=== PATIENT | female | born 1995 | race Caucasian/White ===

== ENCOUNTER → 2018-06-08 | Outpatient (CLI) | payer MEDICAID ==
[~2018-06-08] MED LIST: COLA100C5 PO; IBUP1TAB7 PO; MOM30SS PO; OXYC1TAB23 PO; PERC5TAB12 PO; PERCOCET PO; PRENTAB9 PO
[2018-06-08 13:24] LABS: BASO % 0.3 % (0.0-1.0); EOS % 0.4 % (0.0-3.0); HEMATOCRIT 35.3 % (36.0-47.0); HEMOGLOBIN 11.3 g/dl (12.0-15.5); LYMPH # 1.4 10^3/uL (1.5-6.5); LYMPH % 14.8 % (24.0-44.0); MEAN CORPUSCULAR HEMOGLOBIN 24.9 pg (27.0-33.0); MEAN CORPUSCULAR VOLUME 77.8 fl (80.0-96.0); MONO # 0.5 10^3/uL (0.0-0.8); MONO % 5.6 % (0.0-5.0); NEUTROPHILS # 7.3 10^3/uL (1.8-7.7); NEUTROPHILS % 78.2 % (36.0-66.0); PLATELET COUNT, AUTOMATED 456 10^3/uL (150-450); RED BLOOD COUNT 4.54 10^6/uL (4.00-5.40); WHITE BLOOD COUNT 9.4 10^3/uL (4.0-10.0)
[2018-06-08 14:17] LABS: HEPATITIS C VIRUS ABY INDEX 0.1 INDEX (<0.8); HIV 1&2 SCREEN CENTAUR NEGATIVE (NEGATIVE); RUBELLA IgG QUALITATIVE IMMUNE (IMMUNE)
[2018-06-08 14:25] LABS: HEMOGLOBIN A1c 6.5 %
[2018-06-08 15:10] LABS: CHLAMYDIA DNA AMPLIFICATION NEGATIVE (NEGATIVE); GC DNA AMPLIFICATION NEGATIVE (NEGATIVE)
== END ==
LOC: M SMT 09:50
PROVIDERS: ATTEND Advanced Practice Midwife
DX: Z36.89 Encounter for other specified antenatal screening (principal)

== ENCOUNTER 2018-06-10 05:22 | Inpatient (IN) | payer MEDICAID, SELFPAY ==
[2018-06-10] VITALS (30 sets, daily range): BP systolic 100–141; BP diastolic 52–87
[~2018-06-10] VITALS: Ht 172.7 cm; Wt 113.0 kg
[2018-06-10] MEDS ORDERED: LACTATED RINGER'S 1000 ML IV STA ×2 (08:19→11:42)
[2018-06-10] MEDS ORDERED: LR 1,000 ML IV SCH ×2 (08:19→13:00)
[2018-06-10 09:03] LABS: HEMATOCRIT 34.2 % (36.0-47.0); MEAN CORPUSCULAR HEMOGLOBIN 24.8 pg (27.0-33.0); MEAN CORPUSCULAR HGB CONC 32.2 g/dl (32.0-36.5); MEAN CORPUSCULAR VOLUME 77.2 fl (80.0-96.0); PLATELET COUNT, AUTOMATED 462 10^3/uL (150-450); RED BLOOD COUNT 4.43 10^6/uL (4.00-5.40); WHITE BLOOD COUNT 12.5 10^3/uL (4.0-10.0)
[2018-06-10 09:29] LABS: ALT/SGPT 17 U/L (12-78); BILIRUBIN,TOTAL 0.2 MG/DL (0.2-1.0); CREATININE FOR GFR 0.43 MG/DL (0.55-1.30); GLOMERULAR FILTRATION RATE > 60.0 (>60); LDH LACTATE DEHYDROGENASE 391 U/L (84-246); URIC ACID 3.3 MG/DL (2.6-6.0)
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
[2018-06-10 10:13] LABS: AMPHETAMINES URINE REFLEX NEGATIVE (NEGATIVE); BARBITURATES URINE REFLEX NEGATIVE (NEGATIVE); BENZODIAZEPINES URINE REFLEX NEGATIVE (NEGATIVE); CANNABINOIDS URINE REFLEX NEGATIVE (NEGATIVE); COCAINE METABOLITE URINE REFLE NEGATIVE (NEGATIVE); CREATININE,RANDOM URINE 18.3 MG/DL; METHADONE URINE REFLEX NEGATIVE (NEGATIVE); OPIATES URINE REFLEX NEGATIVE (NEGATIVE); PHENCYCLIDINE URINE REFLEX NEGATIVE (NEGATIVE); TOTAL PROTEIN,RANDOM URINE 9.8 MG/DL (0.0-12.0)
[2018-06-10] MEDS ORDERED: FENTANYL 2MCG/ML ROPIVACAINE 0.2% IN 0.9% NACL 100ML IVBAG As Ordered ONE (10:21)
[2018-06-10] MEDS ORDERED: LACTATED RINGER'S 1000 ML IV PRN (11:00)
[2018-06-10] MEDS ORDERED: FENTANYL/ROPIVACAINE/NACL BAG 100 ML EPIDURAL SCH (11:00)
[2018-06-10] MEDS ORDERED: ONDANSETRON 4MG/2ML VIAL (J2405) IV PRN ×4 (11:00→13:00)
[2018-06-10] MEDS ORDERED: diphenhydrAMINE INJ 50MG/ML VIAL (J1200) IV PRN ×2 (11:00→12:10)
[2018-06-10] MEDS ORDERED: NALOXONE INJ 0.4 MG/1 ML VIAL (J2310) IV PRN ×3 (11:00→12:10)
[2018-06-10] MEDS ORDERED: EPIDURAL/PCA KEYS XX PRN (11:00)
[2018-06-10] MEDS ORDERED: ePHEDrine SULFATE 25 MG/5 ML(5MG/ML) SYRINGE IV PRN (11:00)
[2018-06-10] MEDS ORDERED: EPIDURAL COMMENT XX SCH (11:00)
[2018-06-10] MEDS ORDERED: REFRIGERATOR IV KEYS XX PRN (11:00)
[2018-06-10] MEDS ORDERED: AZITHROMYCIN INJ 500MG VIAL (J0456) As Ordered ONE (11:44)
[2018-06-10] MEDS ORDERED: ceFAZolin 2 GM/D5W 50 ML IV BAG (J0690 PER 500MG) As Ordered ONE (11:45)
[2018-06-10] MEDS ORDERED: AZITHROMYCIN INJ 500 MG, VIAL MATE ADAPTER 1 EACH in D5W 250 ML IV ONE (11:45)
[2018-06-10] MEDS ORDERED: BICITRA 30ML SOLN UDC PO ONE (11:45)
--- NOTE | 2018-06-10 11:47 | IPNPDOC ---
Text Note Date of Service The patient was seen on 06/10/18. NOTE FH decel to 60's/70's over 3-4 minutes with slow recovery O2 via mask, IV fluid bolus, position change to all 4's. SVE 5-6cm Dr Hays alerted. called. VS,Fishbone, I+O VS, Fishbone, I+O Laboratory Tests 06/10/18 08:47 Red Blood Count 4.43, Mean Corpuscular Volume 77.2 L, Mean Corpuscular Hemoglobin 24.8 L, Mean Corpuscular Hemoglobin Concent 32.2, Red Cell Distribution Width 14.4, Aspartate Amino Transf (AST/SGOT) 37, Alanine Aminotransferase (ALT/SGPT) 17, Lactate Dehydrogenase 391 H, Total Bilirubin 0.2, Uric Acid 3.3 Vital Signs Date Time Temp Pulse Resp B/P (MAP) Pulse Ox O2 Delivery O2 Flow Rate FiO2 06/10/18 06:30 98.6 06/10/18 05:40 107 140/80 (100) Radha Veras CNM Jun 10, 2018 11:47
[2018-06-10] MEDS ORDERED: OXYTOCIN INJ 10 UNITS/ML VIAL (J2590) As Ordered ONE (12:06)
[2018-06-10] MEDS ORDERED: MORPHINE PRES-FREE INJ 10 MG/10 ML VIAL (J2274) As Ordered ONE (12:06)
[2018-06-10] MEDS ORDERED: LIDOCAINE 2% W/EPIN INJ 20ML **PRES FREE As Ordered ONE (12:06)
[2018-06-10] MEDS ORDERED: MIDAZOLAM INJ 2 MG/2 ML VIAL (J2250) As Ordered ONE (12:07)
[2018-06-10] MEDS ORDERED: METOCLOPRAMIDE INJ 10MG/2ML VIAL (J2765) IV PRN ×2 (12:10→13:00)
[2018-06-10 12:24] LABS: CORD GAS ABE A -4.6; CORD GAS HCO3 A 21.1 MEQ/L; CORD GAS PCO2 A 41.3 mmHg; CORD GAS PH A 7.326 UNITS; CORD GAS PO2 A 42.7 mmHg; CORD GAS SBC A 20.4 MEQ/L; CORD GAS TCO2 A 22.4 MEQ/L
[2018-06-10 12:27] LABS: CORD GAS ABE V -3.4; CORD GAS HCO3 V 22.5 MEQ/L; CORD GAS O2 SAT V 79.2 %; CORD GAS PCO2 V 43.2 mmHg; CORD GAS PH V 7.334 UNITS; CORD GAS PO2 V 38.6 mmHg; CORD GAS SBC V 21.2 MEQ/L; CORD GAS TCO2 V 23.8 MEQ/L
[2018-06-10] MEDS ORDERED: OXYTOCIN DRIP 30 UNITS in APPROPRIATE DILUENT 1 EA IV SCH (12:36)
[2018-06-10] MEDS ORDERED: MOM 30ML SUSPENSION UDC PO PRN (12:45)
[2018-06-10] MEDS ORDERED: RHOGAM 300 MCG (1500 IU) INJ (J2790) IM SCH (12:45)
[2018-06-10] MEDS ORDERED: MEASLES,MUMPS,RUBELLA VACCINE INJ (MMR-II) (90707) SC SCH (12:45)
[2018-06-10] MEDS ORDERED: PERCOCET 5MG/325MG TAB PO PRN ×2 (12:45→13:00)
[2018-06-10] MEDS ORDERED: MEPERIDINE INJ 25 MG/ML VIAL (J2175) IV PRN (13:00)
[2018-06-10] MEDS ORDERED: fentaNYL 100 MCG/2 ML INJECTION (J3010) IV PRN (13:00)
[2018-06-10] MEDS ORDERED: NALBUPHINE HCL 10 MG/ML AMP (J2300) IV PRN (13:00)
[2018-06-10] MEDS ORDERED: KETOROLAC 30 MG/ML VIAL (J1885) IV PRN (13:00)
[2018-06-10] MEDS ORDERED: KETOROLAC 30 MG/ML VIAL (J1885) As Ordered ONE (13:01)
[2018-06-10] MEDS ORDERED: OXYTOCIN 30 UNITS IN 0.9% NaCl 500ML IV BAG (J2590) As Ordered ONE (13:03)
[2018-06-10] MEDS: KETOROLAC 30 MG/ML VIAL (J1885) IV SCH ×2 (13:04→18:30)
--- NOTE | 2018-06-10 13:11 | RO ---
DATE OF PROCEDURE: 06/10/2018 PREPROCEDURE DIAGNOSIS: Nonreassuring heart rate tracing. POSTPROCEDURE DIAGNOSIS: Nonreassuring heart rate tracing. PROCEDURE: Primary lower transverse section. SURGEON: Dr. Chrissy Hays DONOR CENTER TECHNICIAN: Mayra Maki MD ANESTHESIA: Epidural. ESTIMATED BLOOD LOSS: 500 mL. INTRAVENOUS FLUIDS: 1 liter of lactated ringer solution. URINE OUTPUT: 150 mL. OPERATIVE FINDINGS: Live born male , scores 8 and 9, weight 8 pounds 6 ounces, 3790 grams. There was an approximately 2 cm laceration upon entry of the left forehead. PREOPERATIVE ANTIBIOTICS: 2 grams of Ancef. SPECIMENS: Cord blood and gases. Cord gases were 7.32 and 7.33. Base excesses -4.6 and -3.4. DESCRIPTION OF PROCEDURE: After informed consent was obtained and written content was reviewed, the patient was brought to the operating room urgently and was placed in supine position left lateral tilt. A Couch catheter was previously placed. She was prepped and draped in normal sterile fashion. A time out in the operating room was then performed identifying the patient, the procedure to be performed, as well as drug allergies. Anesthesia was tested and deemed to be adequate. A Pfannenstiel skin incision was then made and carried down to the underlying rectus fascia. The fascia was scored and this incision was extended bilaterally. The fascia was then dissected off the underlying rectus muscles both superiorly and inferiorly. The rectus muscles were in the midline. The peritoneum was then entered. The vesicouterine was identified and was then excised to create a bladder flap. The bladder blade was then placed to retract back the bladder. A curvilinear incision was made in the lower uterine segment. The head was then delivered along with shoulders and corpus. There was a double nuchal cord that was reduced. The cord was clamped times two and was cut. was taken over to the warmer where Dr. Byrne, principle industrial hygienist, weighed it. Cord gases blood was obtained. The placenta was drained and delivered grossly intact. The uterus was then exteriorized and cleared of all clots and debris. The uterine incision was closed in two layers using #0 Vicryl first in a running locking fashion, followed by a second layer for imbrication in a running nonlocking fashion. The abdomen was then suctioned. The uterus was returned to the patient's abdomen. It was inspected and noted to be hemostatic. The anterior peritoneum was then reapproximated with #3-0 Vicryl. The fascia was then closed using #0 Vicryl in a running nonlocking fashion. The subcutaneous tissue was then irrigated and suctioned. The subcutaneous tissue was then reapproximated with #3-0 Vicryl. Several subdermal stitches were placed with #3-0 Vicryl. The skin was closed with #4-0 Monocryl in subcuticular fashion. The incision was then cleaned and dried and was dressed. The patient was then taken to recovery in stable condition. Counts were correct.
[2018-06-10] MEDS: PERCOCET 5MG/325MG TAB PO PRN ×2 (15:27→20:41)
[2018-06-10] MEDS: NALBUPHINE HCL 10 MG/ML AMP (J2300) IV PRN ×2 (16:32→21:24)
[2018-06-10] MEDS: LR 1,000 ML IV SCH (18:30)
[2018-06-10] MEDS: DOCUSATE SODIUM 100 MG CAP PO SCH (20:42)
[2018-06-11] MEDS: KETOROLAC 30 MG/ML VIAL (J1885) IV SCH ×2 (00:45→06:08)
[2018-06-11] MEDS: PERCOCET 5MG/325MG TAB PO PRN ×5 (01:21→20:15)
[2018-06-11] MEDS: LR 1,000 ML IV SCH (01:45)
[2018-06-11 02:00] VITALS: BP 118/59
[2018-06-11 06:00] VITALS: BP 101/59
[2018-06-11 06:50] LABS: HEMATOCRIT 29.9 % (36.0-47.0); HEMOGLOBIN 9.3 g/dl (12.0-15.5); MEAN CORPUSCULAR HEMOGLOBIN 24.7 pg (27.0-33.0); MEAN CORPUSCULAR HGB CONC 31.1 g/dl (32.0-36.5); MEAN CORPUSCULAR VOLUME 79.3 fl (80.0-96.0); RED BLOOD COUNT 3.77 10^6/uL (4.00-5.40)
[2018-06-11 07:03] LABS: PLATELET COUNT, AUTOMATED 357 10^3/uL (150-450)
--- NOTE | 2018-06-11 07:14 | IPNPDOC ---
Text Note Date of Service The patient was seen on 06/11/18. NOTE PO #1 Feels well. Adequate pain managment. Couch d/c this am. Due to void VSS, afebrile, normotensive Fundus firm, NT Dressing dry, intact with old drainage Lochia rubra scant without odor PO #1 Routine precautions. Enc OOB activity. Consider D/C in am VS,Fishbone, I+O VS, Fishbone, I+O Laboratory Tests 06/10/18 08:47 Red Blood Count 4.43, Mean Corpuscular Volume 77.2 L, Mean Corpuscular Hemoglobin 24.8 L, Mean Corpuscular Hemoglobin Concent 32.2, Red Cell Distribution Width 14.4, Aspartate Amino Transf (AST/SGOT) 37, Alanine Aminotransferase (ALT/SGPT) 17, Lactate Dehydrogenase 391 H, Total Bilirubin 0.2, Uric Acid 3.3 06/11/18 06:13 Red Blood Count 3.77 L, Mean Corpuscular Volume 79.3 L, Mean Corpuscular Hemoglobin 24.7 L, Mean Corpuscular Hemoglobin Concent 31.1 L, Red Cell Distribution Width 14.4 Vital Signs Date Time Temp Pulse Resp B/P (MAP) Pulse Ox O2 Delivery O2 Flow Rate FiO2 06/11/18 06:09 16 Room Air 06/11/18 06:00 97.7 82 101/59 (73) 98 I&O- Last 24 Hours up to 6 AM 06/11/18 06:00 Intake Total 3622 ml Output Total 3625 ml Balance -3 ml Radha Veras CNM Jun 11, 2018 07:14
[2018-06-11] MEDS: DOCUSATE SODIUM 100 MG CAP PO SCH ×2 (07:54→20:15)
[2018-06-11] MEDS: PRENATAL VITAMINS CHEWABLE TABLET PO SCH (07:54)
[2018-06-11] MEDS ORDERED: INFLUENZA QUADRIVALENT PF VACCINE 0.5ML SYRINGE (90686) IM ONE (09:00)
[2018-06-11 10:00] VITALS: BP 110/66
[2018-06-11 13:51] VITALS: BP 124/75
[2018-06-11] MEDS: IBUPROFEN 800 MG TAB PO SCH ×2 (14:43→22:30)
[2018-06-11 18:00] VITALS: BP 126/83
[2018-06-11 22:00] VITALS: BP 125/61
[2018-06-12] MEDS: PERCOCET 5MG/325MG TAB PO PRN ×3 (01:11→16:59)
[2018-06-12 02:00] VITALS: BP 109/55
[2018-06-12 06:00] VITALS: BP 116/67
[2018-06-12] MEDS: DOCUSATE SODIUM 100 MG CAP PO SCH ×2 (07:40→20:48)
[2018-06-12] MEDS: IBUPROFEN 800 MG TAB PO SCH ×3 (07:41→22:10)
[2018-06-12] MEDS: PRENATAL VITAMINS CHEWABLE TABLET PO SCH (07:41)
--- NOTE | 2018-06-12 07:49 | NUR ---
POD#2 S: Doing well w/o complaints. Decreasing lochia, pain controlled, + voids and ambulation. O: vss, AF Gen: well appearing abd: soft, nttp with ff@u-1 incision: Dressed A/P: POD#2 s/p 1LTCS-currently stable -continue routine /postoperative care -d/c plans for tomorrow Chrissy Hays MD
[2018-06-12 10:00] VITALS: BP 117/70
[2018-06-12 14:00] VITALS: BP 113/66
[2018-06-12 18:00] VITALS: BP 120/71
[2018-06-13] MEDS: PERCOCET 5MG/325MG TAB PO PRN ×2 (01:24→09:22)
[2018-06-13 05:43] VITALS: BP 124/76
[2018-06-13] MEDS: IBUPROFEN 800 MG TAB PO SCH (06:49)
[2018-06-13] MEDS ORDERED: PERCOCET PO (07:46)
[2018-06-13] MEDS ORDERED: IBUP1TAB7 PO (07:47)
--- NOTE | 2018-06-13 08:36 | DSES ---
DATE OF ADMISSION: 06/10/2018 DATE OF DISCHARGE: 06/13/2018 DISCHARGE DIAGNOSIS: Repeat section for non-reassuring heart tracing. DISCHARGE CONDITION: Stable. PROCEDURES PERFORMED: 1. Epidural. 2. section. HISTORY AND HOSPITAL COURSE: Ms. Foote is a 23-year-old 1, who presented in labor and had a section for non-reassuring heart tracing, productive of a life-born male infant. Apgars and 8 and 9, weight was 8 pounds, 6 ounces, 3790 grams, estimated blood loss was 500 mL. She did well postoperatively. By postoperative day #3, had met all discharge criteria and was discharged home in stable condition. Physical exam on day of discharge: Vital signs are stable. She is afebrile. General appearance: She is well appearing in no acute distress. Her abdomen is nontender. Fundus is below umbilicus and her incision was dressed. Extremities are negative for calf tenderness. DISCHARGE MEDICATIONS: Percocet and Ibuprofen. DISCHARGE INSTRUCTIONS: 1. She was instructed to followup in 2 weeks for incision check. 2. Report severe pain, having vaginal bleeding, fever, incision issue. 3. Remain on pelvic rest for 6 weeks.
[2018-06-13] MEDS: PRENATAL VITAMINS CHEWABLE TABLET PO SCH (08:41)
[2018-06-13] MEDS: DOCUSATE SODIUM 100 MG CAP PO SCH (08:42)
[2018-06-13] MEDS ORDERED: PERC5TAB12 PO (09:12)
[2018-06-13] MEDS ORDERED: OXYC1TAB23 PO (09:12)
[2018-06-13] MEDS ORDERED: COLA100C5 PO (09:12)
[2018-06-13] MEDS ORDERED: PRENTAB9 PO (09:12)
[2018-06-13] MEDS ORDERED: MOM30SS PO (09:12)
== END 2018-06-13 14:05 | disposition home or self-care (01) | DRG 540 ==
LOC: M LDO 05:22 → M LDI 08:13 → M OBS 14:26
PROVIDERS: ADMIT Advanced Practice Midwife; ATTEND Obstetrics & Gynecology
PROC: 10D00Z1 Extraction of Products of Conception, Low, Open Approach (ICD-10-PCS; principal; 2018-06-10 11:48)
DX: O76 Abnormality in fetal heart rate and rhythm complicating labor and delivery (principal); Z37.0 Single live birth; Z3A.39 39 weeks gestation of pregnancy

== ENCOUNTER → 2019-05-10 | Outpatient (REF) | payer MEDICAID ==
[~2019-05-10] MED LIST changes: +TRAZ-252 PO; +VENL75CA47 PO
[2019-05-10 20:01] LABS: HCG, SERUM QUALITATIVE NEGATIVE (NEGATIVE)
== END ==
LOC: M LAB REF 18:59
PROVIDERS: ATTEND Nurse Practitioner Family
DX: Z32.00 Encounter for pregnancy test, result unknown (principal)

== ENCOUNTER → 2019-08-02 | Outpatient (REF) | payer MEDICAID ==
[2019-08-02 13:22] LABS: APPEARANCE, URINE HAZY (CLEAR); BACTERIA, URINE AUTO 1+ (NEGATIVE); BILIRUBIN, URINE AUTO NEGATIVE (NEGATIVE); BLOOD, URINE BLOOD NEGATIVE (NEGATIVE); COLOR, URINE YELLOW (YELLOW); GLUCOSE, URINE (UA) AUTO NEGATIVE (NEGATIVE); KETONE, URINE AUTO NEGATIVE (NEGATIVE); LEUKOCYTE ESTERASE, URINE AUTO 3+ (NEGATIVE); MUCUS, URINE SMALL (NEGATIVE); NITRITE, URINE AUTO NEGATIVE (NEGATIVE); PROTEIN, URINE AUTO NEGATIVE (NEGATIVE); RBC, URINE AUTO 4 /HPF (0-3); SPECIFIC GRAVITY URINE AUTO 1.023 (1.002-1.035); SQUAMOUS EPITHELIAL CELL UR AU 3 /HPF (0-6); UROBILINOGEN, URINE AUTO 0.2 mg/dL (0.0-2.0); WBC, URINE AUTO 65 /HPF (0-3)
[2019-08-02 13:26] LABS: BASO % 0.7 % (0.0-1.0); EOS % 0.7 % (0.0-3.0); HEMATOCRIT 41.4 % (36.0-47.0); LYMPH # 1.9 10^3/uL (1.5-5.0); LYMPH % 31.7 % (24.0-44.0); MEAN CORPUSCULAR HGB CONC 31.4 g/dl (32.0-36.5); MEAN CORPUSCULAR VOLUME 82.8 fl (80.0-96.0); MONO # 0.4 10^3/uL (0.0-0.8); MONO % 6.1 % (0.0-5.0); NEUTROPHILS # 3.6 10^3/uL (1.5-8.5); NEUTROPHILS % 60.6 % (36.0-66.0); PLATELET COUNT, AUTOMATED 482 10^3/uL (150-450); WHITE BLOOD COUNT 5.9 10^3/uL (4.0-10.0)
[2019-08-02 13:41] LABS: ALT/SGPT 26 U/L (12-78); BILIRUBIN,TOTAL 0.4 MG/DL (0.2-1.0); BLOOD UREA NITROGEN 10 MG/DL (7-18); CALCIUM LEVEL 8.9 MG/DL (8.5-10.1); CARBON DIOXIDE LEVEL 25 MEQ/L (21-32); CHLORIDE LEVEL 106 MEQ/L (98-107); CHOLESTEROL LEVEL 144 MG/DL (<200); CHOLESTEROL RISK RATIO 3.692 (<5); CREATININE FOR GFR 0.74 MG/DL (0.55-1.30); FREE T4 1.02 NG/DL (0.76-1.46); GLOMERULAR FILTRATION RATE > 60.0 (>60); GLUCOSE, FASTING 81 MG/DL (70-100); HDL CHOLESTEROL 39 MG/DL (>40); LDL CHOLESTEROL 89 MG/DL (<100); NON-HDL-C 105 MG/DL; POTASSIUM SERUM 4.6 MEQ/L (3.5-5.1); SODIUM LEVEL 137 MEQ/L (136-145); THYROID STIMULATING HORMONE 0.737 uIU/ML (0.358-3.740); TOTAL PROTEIN 7.3 GM/DL (6.4-8.2); TRIGLYCERIDES LEVEL 78 MG/DL (<150)
[2019-08-02 14:26] LABS: HEMOGLOBIN A1c 5.7 %
== END ==
LOC: M LAB REF 12:45
PROVIDERS: ATTEND Nurse Practitioner Family
DX: Z13.29 Encounter for screening for other suspected endocrine disorder (principal); F41.8 Other specified anxiety disorders; F43.10 Post-traumatic stress disorder, unspecified

== ENCOUNTER → 2020-01-24 | Outpatient (CLI) | payer MEDICAID ==
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
== END ==
LOC: M RAD 16:48
PROVIDERS: ATTEND Physician Assistant
DX: M79.671 Pain in right foot (principal)

== ENCOUNTER → 2020-03-19 | Outpatient (REF) | payer OTHER, MEDICAID ==
[2020-03-21 15:51] LABS: CHLAMYDIA DNA AMPLIFICATION NEGATIVE (NEGATIVE); GC DNA AMPLIFICATION NEGATIVE (NEGATIVE)
== END ==
LOC: M SFHCWAGY 09:48
PROVIDERS: ATTEND Advanced Practice Midwife
DX: Z11.3 Encounter for screening for infections with a predominantly sexual mode of transmission (principal); Z12.4 Encounter for screening for malignant neoplasm of cervix

== ENCOUNTER 2020-04-23 13:14 | Emergency (ER) | payer MEDICAID, OTHER ==
[~2020-04-23] VITALS: Ht 172.7 cm; Wt 101.7 kg
[2020-04-23] MEDS ORDERED: NEXP1IMP SC (13:24)
[2020-04-23] MEDS ORDERED: NS 1,000 ML IV ONE (14:00)
[2020-04-23] MEDS ORDERED: METOCLOPRAMIDE INJ 10MG/2ML VIAL (J2765 PER 1) IV ONE (14:00)
[2020-04-23 14:22] LABS: BASO % 0.5 % (0.0-1.0); EOS % 0.5 % (0.0-3.0); HEMATOCRIT 42.6 % (36.0-47.0); HEMOGLOBIN 13.3 g/dl (12.0-15.5); LYMPH # 2.2 10^3/uL (1.5-5.0); LYMPH % 26.2 % (24.0-44.0); MEAN CORPUSCULAR HEMOGLOBIN 25.3 pg (27.0-33.0); MEAN CORPUSCULAR HGB CONC 31.2 g/dl (32.0-36.5); MONO # 0.4 10^3/uL (0.0-0.8); MONO % 4.9 % (0.0-5.0); NEUTROPHILS # 5.7 10^3/uL (1.5-8.5); NEUTROPHILS % 67.7 % (36.0-66.0); PLATELET COUNT, AUTOMATED 480 10^3/uL (150-450); RED BLOOD COUNT 5.26 10^6/uL (4.00-5.40); WHITE BLOOD COUNT 8.4 10^3/uL (4.0-10.0)
[2020-04-23 14:52] LABS: ALT/SGPT 29 U/L (12-78); BILIRUBIN,DIRECT 0.1 MG/DL (0.0-0.2); BILIRUBIN,TOTAL 0.6 MG/DL (0.2-1.0); LIPASE 55 U/L (73-393); TOTAL PROTEIN 7.9 GM/DL (6.4-8.2)
[2020-04-23 14:53] LABS: HCG, SERUM QUALITATIVE NEGATIVE (NEGATIVE)
[2020-04-23] MEDS ORDERED: ISOVUE-370 76% 100ML VIAL As Ordered ONE (15:29)
[2020-04-23] MEDS ORDERED: KETOROLAC 30 MG/ML 1ML VIAL IV ONE (15:30)
--- NOTE | 2020-04-23 16:11 | REP ---
INDICATION: lower abdominal pain, greater R, coffee ground stools. COMPARISON: None TECHNIQUE: Axial contrast-enhanced images from the lung bases to the pubic symphysis using 100 cc Isovue 370 intravenous contrast material. Coronal and sagittal reformations obtained. This CT examination was performed using the following dose reduction techniques: Automated exposure control, adjustment of mA and/or kv according to the patient's size, and the use of iterative reconstruction technique. FINDINGS: Liver, spleen, pancreas, gallbladder, bilateral adrenal glands and kidneys are normal. The enteric system including stomach, small, and large bowel appears normal. No evidence for obstruction or acute inflammatory process. Normal terminal ileum and appendix are identified in the right lower quadrant. Pelvis demonstrates normal bladder and age-appropriate uterus/adnexa. No ascites. No free air. No intraperitoneal or retroperitoneal adenopathy. Abdominal aorta and vasculature appear normal. Musculoskeletal structures are intact and without acute osseous abnormality. IMPRESSION: No acute abdominopelvic pathology appreciated. No ascites. No inflammatory stranding. No adenopathy. No free air. <Electronically signed by Jeffrey Nava > 04/23/20 [id number]
[2020-04-23] MEDS ORDERED: MIRA3350 PO (16:29)
[2020-04-23] MEDS ORDERED: COLA100C5 PO (16:29)
[2020-04-23 16:36] VITALS: BP 108/66
== END 2020-04-23 18:06 | disposition home or self-care (01) ==
LOC: M ED 13:14
DX: K59.00 Constipation, unspecified (principal); Z91.018 Allergy to other foods; Z79.3 Long term (current) use of hormonal contraceptives; F17.210 Nicotine dependence, cigarettes, uncomplicated; F12.20 Cannabis dependence, uncomplicated
CPT/HCPCS: 74177; 80047; 80076; 81001; 83690; 84703; 85025; 96361; 96374; 96375; 99284; J1885; J2765; Q9967